=== PATIENT | female | born 2000 | race Caucasian/White ===

== ENCOUNTER 2018-01-30 13:42 | Emergency (ER) | payer BC ==
[2018-01-30 13:56] VITALS: BP 115/74
--- NOTE | 2018-01-30 14:08 | EDPHY ---
H & P Stated Complaint: Twisted R ankle playing softball Time Seen by Provider: 01/30/18 14:07 - Personal History LMP (Females 10-55): IUD In Place Current Tetanus Diphtheria and Acellular Pertussis (TDAP): Yes - Medical/Surgical History Other PMH: healthy - Social History Smoking Status: Never smoked Constitutional: Initial Vital Signs Temperature (C) 37.1 C 01/30/18 13:53 Heart Rate 90 01/30/18 13:53 Respiratory Rate 18 01/30/18 13:53 Blood Pressure 115/74 01/30/18 13:53 O2 Sat (%) 99 01/30/18 13:53 O2 Delivery Mode Room Air Allergies/Adverse Reactions: No Known Allergies Allergy (Unverified 01/30/18 13:53) Home Medications: Medication Instructions Recorded Ibuprofen [Motrin] 800 mg PO Q8 #20 tab 01/30/18 Medical Decision Making - Diagnostics Imaging: Discussed imaging studies w/ director phone Radiologist, I viewed and interpreted images myself ED Course/Re-evaluation: CHIEF COMPLAINT: Right ankle injury HISTORY OF PRESENT ILLNESS: The patient is a 17 y/o female arriving with her mother complaining of a right ankle injury sustained during a soccer game this afternoon. She says she jumped up for a header and was shoved off balance while in the air causing her to land badly on her right foot. She heard a "pop" as she landed and has pain primarily along her lateral right ankle. She denies any other injuries, head strike, weakness, paresthesias, or other complaints. She is normally healthy. REVIEW OF SYSTEMS: A comprehensive 10 system review of systems is otherwise negative aside from elements mentioned in the history of present illness and medical decision making. PHYSICAL EXAM: HR, BP, O2 Sat, RR. Temp noted General Appearance: Alert, well hydrated, appropriate, and non-toxic appearing. Head: Atraumatic without scalp tenderness or obvious injury Eyes: Pupils equal, round, reactive to light and accommodation, EOMI, no trauma , no injection. Nose: Atraumatic, no rhinorrhea, clear. Throat: Mucus membranes moist. Neck: Supple, nontender, no lymphadenopathy. Respiratory: No distress. Cardiovascular: Right dorsalis pedis pulse intact. Good capillary refill all extremities. Musculoskeletal: Tenderness over right lateral ankle and pain with ROM. Otherwise normal active ROM of all extremities, atraumatic. Neurological: Alert, appropriate, and interactive. The patient has non-focal cranial nerves, motor, sensory, and cerebellar exam. Skin: No rashes, good turgor, no nodules on palpation. Past medical history: Denies Past surgical history: Denies Family history: Noncontributory Social history: Mother at bedside. 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 DIAGNOSTICS/PROCEDURES/CRITICAL CARE TIME: Right ankle x-ray: no fracture DIFFERENTIAL DIAGNOSIS: The differential diagnosis for the patient's injury included but was not limited to anterolateral tibial ligament sprain, fracture, ligamentous injury, contusion, muscular strain. MEDICAL DECISION MAKING: This is a healthy 17 y/o female who presents with a right ankle injury from a soccer game this morning. She has tenderness along her right lateral ankle and pain with ROM of her ankle. She is neurovascularly intact. Plan for ankle x-ray. X-ray negative for fracture. Reassessed patient and discussed findings. She will be placed in an ankle stirrup splint for ankle sprain and discharged with standard care and follow up instructions. She's been referred to our orthopedist aoc director combat operations officer. Return precautions discussed. She is comfortable with this plan. 1435: Dr. Bynum is currently assessing patient in the room. Departure - Departure Disposition: Home, Routine, Self-Care Clinical Impression: Ankle sprain Qualifiers: Encounter type: initial encounter Involved ligament of ankle: unspecified ligament Laterality: right Qualified Code(s): S93.401A - Sprain of unspecified ligament of right ankle, initial encounter Condition: Good Instructions: Ankle Sprain (DC), Ankle Stirrup Splint (ED) Additional Instructions: 1. Wear splint for comfort. Okay to bear weight or use crutches if necessary. 2. Rest, ice, and ibuprofen for symptoms. Take 800mg ibuprofen every 8 hours for pain and inflammation for the next few days. 3. Follow up with orthopedist in the next week for reevaluation. Referrals: Joseluis Bynum MD [Medical Doctor] - As per Instructions Prescriptions: Ibuprofen [Motrin] 800 mg PO Q8 #20 tab Report Scribed for: Jourdan Herrera Report Scribed by: Ashley Conroy Date of Report: 01/30/18 Time of Report: 14:29
--- NOTE | 2018-01-30 16:09 | PDCONSULT ---
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 She felt a pop and was unable to ambulate. Still too painful to walk. PMHx: none PSHx: none Meds: Denies any chronic meds SocHx: nonsmoker. 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 unlabored breathing. a bit anxious to hear about injury RLE: mild edema. Very TTP along lateral malleolus and distal shaft. TTP at syndesmosis. More TTP at ATFL and deep CFL. No medial gutter/TT TTP. No proximalfibular shaft TTP. Negative calf squeeze test for syndesmosis pain. SILT S/S/SP/DP/T. AROM limited by pain but present. 2+ DP/PT pulses Imaging: no fractures seen on ankle nonweightbearing film. 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 - Return to my clinic on Wednesday afternoon for WB films and/or stress films to rule out syndesmotic injury. If only lateral ligament sprain, will initiate rehabilitation protocol.
== END 2018-01-30 14:40 | disposition home or self-care (01) ==
DX: S93.401A Sprain of unspecified ligament of right ankle, initial encounter (principal); W50.2XXA Accidental twist by another person, initial encounter; Y93.66 Activity, soccer
CPT/HCPCS: L4386